=== PATIENT | female | born 1970 | race Caucasian/White ===

== ENCOUNTER 2017-01-04 07:37 | Emergency (ER) | payer BC ==
[~2017-01-04] VITALS: Ht 167.6 cm; Wt 77.3 kg
[2017-01-04 07:38] VITALS: TEMP 98.2
[2017-01-04] MEDS ORDERED: PRINZIDE 25 MG-1 TAB PO (08:10)
[2017-01-04] MEDS ORDERED: NORVASC 5MG5 MG/TAB PO (08:10)
[2017-01-04 08:57] LABS: BASO # 0.1 (0.0-0.2); BASO % 0.6 % (0.0-2.0); GRAN # 5.5 (1.4-6.5); GRAN % 65.7 % (42.2-75.2); HEMATOCRIT 51.3 % (37.0-47.0); HEMOGLOBIN 17.5 g/dl (12.5-16.0); LYMPH # 1.9 (1.2-3.4); LYMPH % 22.1 % (20.0-51.0); MEAN CELL VOLUME 92 fl (80.0-100.0); MEAN CORPUSCULAR HEMOGLOBIN 31 pg (27.0-31.0); MEAN CORPUSCULAR HGB CONC 34 g/dl (33.0-37.0); MEAN PLATELET VOLUME 9.5 fl (7.4-10.4); MONO % 11.4 % (1.7-9.3); PLATELET COUNT 282 K/mm3 (130-400); RED BLOOD COUNT 5.58 M/mm3 (4.10-5.30); REDCELL DISTRIBUTION WIDTH-CV 13.2 % (11.5-14.5); WHITE BLOOD COUNT 8.4 K/mm3 (4.8-10.8)
[2017-01-04 09:00] LABS: INR 0.9 (0.8-3.0); PROTHROMBIN TIME 10.4 SECONDS (9.7-12.8)
[2017-01-04 09:07] LABS: ADJUSTED CALCIUM 9.5 mg/dL (8.4-10.2); ALANINE AMINOTRANSFERASE 20 U/L (9-52); ALBUMIN 4.2 gm/dL (3.5-5.0); ALKALINE PHOSPHATASE 94 U/L (50-136); ANION GAP 12 mmol/L (7-16); BILIRUBIN,TOTAL 1.2 mg/dL (0.0-1.0); BLOOD UREA NITROGEN 21 mg/dL (7-17); CALCIUM 9.7 mg/dL (8.4-10.2); CARBON DIOXIDE 27 mmol/L (22-30); CHLORIDE 99 mmol/L (98-107); CREATININE, serum 1.13 mg/dL (0.52-1.25); GLUCOSE 105 mg/dL (74-106); POTASSIUM 3.9 mmol/L (3.4-5.0); SODIUM 138 mmol/L (137-145); TOTAL PROTEIN 7.3 gm/dL (6.4-8.2)
[2017-01-04 09:19] LABS: TROPONIN-I < 0.012 ng/mL (0.000-0.034)
[2017-01-04 12:04] VITALS: BP 116/49; PULSE 72
== END 2017-01-04 12:12 | disposition home or self-care (01) ==
LOC: COL.ER 07:37
PROVIDERS: Emergency Medicine
DX: R07.9 Chest pain, unspecified (principal); I10 Essential (primary) hypertension; F17.210 Nicotine dependence, cigarettes, uncomplicated; Z85.048 Personal history of other malignant neoplasm of rectum, rectosigmoid junction, and anus; Z98.890 Other specified postprocedural states
CPT/HCPCS: J7030

== ENCOUNTER 2017-01-17 11:56 | Inpatient (IN) | payer BC ==
[~2017-01-17] VITALS: Ht 167.6 cm; Wt 77.3 kg
[~2017-01-17 11:56] MED LIST: NORVASC 5MG5 MG/TAB PO; PRINZIDE 25 MG-1 TAB PO
[2017-01-17] MEDS ORDERED: ASPIRIN 81M81 MG/TA2 PO (12:01)
[2017-01-17 13:24] LABS: HEMATOCRIT 46.5 % (37.0-47.0); HEMOGLOBIN 15.9 g/dl (12.5-16.0); MEAN CELL VOLUME 91 fl (80.0-100.0); MEAN CORPUSCULAR HEMOGLOBIN 31 pg (27.0-31.0); MEAN CORPUSCULAR HGB CONC 34 g/dl (33.0-37.0); MEAN PLATELET VOLUME 9.9 fl (7.4-10.4); PLATELET COUNT 236 K/mm3 (130-400); RED BLOOD COUNT 5.12 M/mm3 (4.10-5.30); REDCELL DISTRIBUTION WIDTH-CV 13.1 % (11.5-14.5); WHITE BLOOD COUNT 13.4 K/mm3 (4.8-10.8)
[2017-01-17 13:28] LABS: ADD PATHOLOGY DIFF REVIEW NO
[2017-01-17 13:37] LABS: ADJUSTED CALCIUM 9.9 mg/dL (8.4-10.2); ALBUMIN 4.3 gm/dL (3.5-5.0); BILIRUBIN,TOTAL 0.7 mg/dL (0.0-1.0); CALCIUM 10.1 mg/dL (8.4-10.2); CREATININE, serum 3.45 mg/dL (0.52-1.25); POTASSIUM 3.6 mmol/L (3.4-5.0); TOTAL PROTEIN 8.6 gm/dL (6.4-8.2)
[2017-01-17 13:49] LABS: INFLUENZA B NEGATIVE
[2017-01-17 13:53] LABS: BAND 4 % (0-10); NEUTROPHILS 71 % (42.0-75.2); PLATELET ESTIMATE NORMAL (NORMAL); TOTAL CELLS COUNTED 100
[2017-01-17 14:06] LABS: HYALINE CAST >12 /lpf; PH 5 (5-8); URINE APPEARANCE Cloudy; URINE BACTERIA Moderate /hpf; URINE BILIRUBIN Negative (NEGATIVE); URINE BLOOD 1+ (NEGATIVE); URINE COLOR Amber; URINE GLUCOSE Negative (NEGATIVE); URINE KETONE Trace (NEGATIVE); URINE RBC 20-50 /hpf; URINE UROBILINOGEN Negative (NEGATIVE)
[2017-01-17 14:07] LABS: URINE WBC >50 /hpf
[2017-01-17 18:12] VITALS: BP 117/44; PULSE 72; TEMP 99.9
[2017-01-17 21:47] VITALS: BP 128/68; PULSE 74; TEMP 99
[2017-01-18 01:17] VITALS: BP 141/54; PULSE 82; TEMP 101.4
[2017-01-18 05:09] VITALS: BP 134/57; PULSE 72; TEMP 98.6
[2017-01-18 07:25] LABS: HEMATOCRIT 43.4 % (37.0-47.0); HEMOGLOBIN 14.4 g/dl (12.5-16.0); MEAN CELL VOLUME 93 fl (80.0-100.0); MEAN CORPUSCULAR HEMOGLOBIN 31 pg (27.0-31.0); MEAN CORPUSCULAR HGB CONC 33 g/dl (33.0-37.0); MEAN PLATELET VOLUME 9.7 fl (7.4-10.4); PLATELET COUNT 251 K/mm3 (130-400); RED BLOOD COUNT 4.66 M/mm3 (4.10-5.30); REDCELL DISTRIBUTION WIDTH-CV 13.4 % (11.5-14.5); WHITE BLOOD COUNT 9.5 K/mm3 (4.8-10.8)
[2017-01-18 07:40] LABS: ADD PATHOLOGY DIFF REVIEW NO
[2017-01-18 07:47] LABS: CALCIUM 9.3 mg/dL (8.4-10.2); CREATININE, serum 1.4 mg/dL (0.52-1.25); POTASSIUM 3.2 mmol/L (3.4-5.0)
[2017-01-18 08:09] VITALS: BP 142/60; PULSE 58; TEMP 98
[2017-01-18 09:15] LABS: BAND 22 % (0-10); BASOPHIL 1 % (0-2); EOSINOPHIL 1 % (0-4); METAMYELOCYTE 1 % (0-0); NEUTROPHILS 54 % (42.0-75.2); PLATELET ESTIMATE NORMAL (NORMAL); TOTAL CELLS COUNTED 100
[2017-01-18 11:52] VITALS: BP 155/56; PULSE 79; TEMP 98.9
[2017-01-18 16:26] VITALS: BP 131/52; PULSE 71; TEMP 100.2
[2017-01-18 21:24] VITALS: BP 129/42; PULSE 64; TEMP 98.3
[2017-01-19] VITALS (7 sets, daily range): BP systolic 132–161; BP diastolic 51–65; PULSE 61–75; TEMP 98–99.7
[2017-01-19 07:43] LABS: CALCIUM 9.6 mg/dL (8.4-10.2); CREATININE, serum 0.85 mg/dL (0.52-1.25); MAGNESIUM 1.5 mg/dL (1.6-2.3); POTASSIUM 4.2 mmol/L (3.4-5.0)
[2017-01-19 11:32] LABS: HEMATOCRIT 41.4 % (37.0-47.0); HEMOGLOBIN 13.3 g/dl (12.5-16.0); MEAN CELL VOLUME 95 fl (80.0-100.0); MEAN CORPUSCULAR HEMOGLOBIN 30 pg (27.0-31.0); MEAN CORPUSCULAR HGB CONC 32 g/dl (33.0-37.0); MEAN PLATELET VOLUME 9.7 fl (7.4-10.4); PLATELET COUNT 290 K/mm3 (130-400); RED BLOOD COUNT 4.37 M/mm3 (4.10-5.30); REDCELL DISTRIBUTION WIDTH-CV 13.6 % (11.5-14.5); WHITE BLOOD COUNT 6.9 K/mm3 (4.8-10.8)
[2017-01-19 11:38] LABS: ADD PATHOLOGY DIFF REVIEW NO
[2017-01-19 12:24] LABS: BAND 18 % (0-10); BASOPHIL 1 % (0-2); EOSINOPHIL 4 % (0-4); METAMYELOCYTE 1 % (0-0); NEUTROPHILS 46 % (42.0-75.2); PLATELET ESTIMATE NORMAL (NORMAL); TOTAL CELLS COUNTED 100
[2017-01-20 04:41] VITALS: BP 131/50; PULSE 64; TEMP 97.8
[2017-01-20 05:48] LABS: CALCIUM 9.8 mg/dL (8.4-10.2); CREATININE, serum 0.87 mg/dL (0.52-1.25); MAGNESIUM 1.6 mg/dL (1.6-2.3); POTASSIUM 5.2 mmol/L (3.4-5.0)
[2017-01-20 07:33] VITALS: BP 138/50; PULSE 64; TEMP 98.6
[2017-01-20] MEDS ORDERED: FLOMAX 0.40.4 MG/CAP PO (08:41)
[2017-01-20] MEDS ORDERED: NORCO 325 MG-51 TAB PO (09:39)
[2017-01-20] MEDS ORDERED: CIPRO 500MG TA500 MG PO (10:59)
== END 2017-01-20 13:23 | disposition home or self-care (01) | DRG 872 ==
LOC: COL.ER 11:56 → MEDICAL 16:00
PROVIDERS: Nurse Practitioner; Nurse Practitioner Family; Physician Assistant
DX: A41.51 Sepsis due to Escherichia coli [E. coli] (principal); N39.0 Urinary tract infection, site not specified; N17.9 Acute kidney failure, unspecified; N10 Acute pyelonephritis; B96.20 Unspecified Escherichia coli [E. coli] as the cause of diseases classified elsewhere; I10 Essential (primary) hypertension; Z85.048 Personal history of other malignant neoplasm of rectum, rectosigmoid junction, and anus; F17.210 Nicotine dependence, cigarettes, uncomplicated; R33.9 Retention of urine, unspecified; E86.0 Dehydration; E87.6 Hypokalemia; E87.5 Hyperkalemia; E83.42 Hypomagnesemia
CPT/HCPCS: 99223-AI; 99232-AI; 99233-AI; 99239; J0696; J1650; J1956; J3475; J3480; J7030

== ENCOUNTER → 2017-07-31 | Outpatient (CLI) | payer BC ==
[~2017-07-31] MED LIST changes: +ASPIRIN 81M81 MG/TA2 PO; +CIPRO 500MG TA500 MG PO; +FLOMAX 0.40.4 MG/CAP PO; +NORCO 325 MG-51 TAB PO
== END ==
LOC: MC.RAD 13:40
DX: Z12.31 Encounter for screening mammogram for malignant neoplasm of breast (principal)

== ENCOUNTER → 2018-09-05 | Day surgery (SDC) | payer BC ==
[~2018-09-05] VITALS: Ht 168.9 cm; Wt 72.3 kg
[~2018-09-05] MED LIST changes: +FISH OIL 1000MG1 CAP PO; +IBU800 M1 PO; +NASAL MOISTURIZ45 ML NS; +NORVASC 10MG10 MG PO; +PRILOSEC 20MG20 MG PO; +ZOCOR 40MG40 MG PO
[2018-09-05 11:20] VITALS: BP 134/69; PULSE 82; TEMP 98.5
[2018-09-05 14:35] VITALS: TEMP 99
[2018-09-05 14:41] VITALS: BP 129/54; PULSE 76
--- NOTE | 2018-09-05 14:41 | NUR ---
Patient returns to room 6 per cart from PACU and is awake and alert. Temp 97.9 and room air sats 96%. Freeman catheter draining yellow urine and is connected to leg bag. Denies pain or nausea. IV fluids infusing. Call light in reach and spouse in room. Drinking juice and eating muffin.
[2018-09-05 14:56] VITALS: BP 115/41; PULSE 57
--- NOTE | 2018-09-05 14:56 | NUR ---
Room air sats 94% and given instructions on changing garcía catheter from leg bag to dependent drainage bag at night. Provided alcohol wipes and tape if needed. Given handout on managing garcía catheter at home.
[2018-09-05 15:11] VITALS: BP 131/54; PULSE 80
--- NOTE | 2018-09-05 15:11 | NUR ---
Urine in leg bag clear yellow and denies pain. IV discontinued and patient dresses self.
--- NOTE | 2018-09-05 15:24 | NUR ---
Patient dismissed to home per private vehicle driven by spouse and walked to the front door by RN and assisted into car with instructions in hand.
== END ==
LOC: SDCO 11:04
DX: N35.92 Unspecified urethral stricture, female (principal); R35.1 Nocturia; N32.89 Other specified disorders of bladder; R33.8 Other retention of urine; K21.9 Gastro-esophageal reflux disease without esophagitis; F41.9 Anxiety disorder, unspecified; I10 Essential (primary) hypertension; E78.5 Hyperlipidemia, unspecified; Z85.048 Personal history of other malignant neoplasm of rectum, rectosigmoid junction, and anus; Z92.21 Personal history of antineoplastic chemotherapy; Z92.3 Personal history of irradiation; F17.210 Nicotine dependence, cigarettes, uncomplicated; Z79.899 Other long term (current) drug therapy; Z80.1 Family history of malignant neoplasm of trachea, bronchus and lung; G43.909 Migraine, unspecified, not intractable, without status migrainosus; G89.29 Other chronic pain; M25.559 Pain in unspecified hip
CPT/HCPCS: J0690; J1100; J1885; J2405; J2704; J3010; J7120

== ENCOUNTER 2018-10-12 11:44 | Day surgery (SDC) | payer BC ==
[~2018-10-12] VITALS: Ht 167.6 cm; Wt 72.0 kg
[2018-10-12 12:20] VITALS: BP 124/53; PULSE 70; TEMP 97.5
[2018-10-12 13:40] VITALS: BP 111/66; PULSE 70; TEMP 97
--- NOTE | 2018-10-12 13:40 | NUR ---
Pt to GI bay 2 via cart from ENDO. Pt drowsy, but awake. Pt denies pain or nausea. Pt ambulates to recliner with stand by assistance x2. in room. Warm blanket provided. Water and Jello given per pt request. Call light within reach. Will continue to monitor. Call light within reach.
[2018-10-12 13:55] VITALS: BP 122/54; PULSE 73
--- NOTE | 2018-10-12 13:56 | NUR ---
Pt tolerating food and drink. Denies any nausea or pain. in room.
--- NOTE | 2018-10-12 14:20 | NUR ---
Discussed discharge instructions, med list and procedure information with pt and pt's . Answered all questions to pt's satisfaction. Pt signed discharge paperwork.
--- NOTE | 2018-10-12 14:26 | NUR ---
Pt discharged from [facility]. pt left unit via wheelchair to private vehicle driven by .
[2018-10-12 15:57] VITALS: BP 118/64; PULSE 70
== END 2018-10-12 14:26 | disposition home or self-care (01) ==
LOC: SDCO 11:44
DX: Z12.11 Encounter for screening for malignant neoplasm of colon (principal); K52.9 Noninfective gastroenteritis and colitis, unspecified; K62.89 Other specified diseases of anus and rectum; K57.30 Diverticulosis of large intestine without perforation or abscess without bleeding; Z85.048 Personal history of other malignant neoplasm of rectum, rectosigmoid junction, and anus; E78.00 Pure hypercholesterolemia, unspecified; F32.9 Major depressive disorder, single episode, unspecified; K21.9 Gastro-esophageal reflux disease without esophagitis; Z92.21 Personal history of antineoplastic chemotherapy; Z92.3 Personal history of irradiation; Z80.42 Family history of malignant neoplasm of prostate; Z80.1 Family history of malignant neoplasm of trachea, bronchus and lung; Z82.3 Family history of stroke
CPT/HCPCS: J2250; J3010; J7030